=== PATIENT | female | born 1975 | race Caucasian/White ===

== ENCOUNTER → 2018-03-22 | Outpatient (CLI) | payer OTHER ==
[2018-03-22 11:46] LABS: ALT 28 U/L (9-52); AST 23 U/L (14-36); Albumin 4.4 g/dL (3.5-5.0); Alkaline Phosphatase 59 U/L (38-126); Anion Gap 7 mmol/L; Blood Urea Nitrogen 14 mg/dL (7-17); Calcium 9.5 mg/dL (8.4-10.2); Carbon Dioxide 29 mmol/L (22-30); Chloride 105 mmol/L (98-107); Glucose 87 mg/dL (74-99); Potassium 4.4 mmol/L (3.5-5.1); Sodium 141 mmol/L (137-145); Total Bilirubin 0.6 mg/dL (0.2-1.3); Total Protein 7.7 g/dL (6.3-8.2)
--- NOTE | 2018-03-23 10:14 | XR ---
EXAMINATION TYPE: XR chest 2V DATE OF EXAM: 03/22/2018 COMPARISON: 02/29/2016 TECHNIQUE: PA and lateral views submitted. HISTORY: History of right renal cancer FINDINGS: The lungs are clear and there is no pneumothorax, pleural effusion, or focal pneumonia. IMPRESSION: 1. No acute process.
== END | disposition home or self-care (01) ==
LOC: LABWHC1 11:00
PROVIDERS: ATTEND Urology
DX: C64.1 Malignant neoplasm of right kidney, except renal pelvis (principal)
CPT/HCPCS: 36415; 71046; 80053

== ENCOUNTER → 2019-03-17 | Outpatient (CLI) | payer OTHER ==
--- NOTE | 2019-03-17 10:15 | XR ---
EXAMINATION TYPE: XR chest 2V DATE OF EXAM: 03/17/2019 COMPARISON: Chest x-ray March 22, 2018. HISTORY: Renal cancer. TECHNIQUE: Frontal and lateral views of the chest are obtained. FINDINGS: There is no focal air space opacity, pleural effusion, or pneumothorax seen. The cardiac silhouette size is within normal limits. The osseous structures are intact. Cholecystectomy clips a re redemonstrated on lateral view. IMPRESSION: No acute cardiopulmonary process. No significant change from prior.
[2019-03-17 17:36] LABS: African American GFR (CKD) 128.5 (60.0-200.0); Albumin 4.4 g/dL (3.80-4.90); Anion Gap 9.7 mmol/L (4.00-12.00); BUN/Creat Ratio 26.67 Ratio (12.00-20.00); Carbon Dioxide 22.3 mmol/L (21.6-31.8); Globulin 2.2 g/dL (1.6-3.3); Potassium 4.2 mmol/L (3.5-5.5); Total Bilirubin 0.4 mg/dL (0.2-1.2); Total Protein 6.6 g/dL (6.2-8.2)
== END | disposition home or self-care (01) ==
LOC: LABWHC1 08:45
PROVIDERS: ATTEND Urology
DX: C64.1 Malignant neoplasm of right kidney, except renal pelvis (principal)
CPT/HCPCS: 36415; 71046; 80053

== ENCOUNTER → 2020-05-10 | Outpatient (CLI) | payer OTHER ==
--- NOTE | 2020-05-10 10:44 | XR ---
EXAMINATION TYPE: XR chest 2V DATE OF EXAM: 05/10/2020 COMPARISON: NONE HISTORY: Chest pain TECHNIQUE: Frontal and lateral views of the chest are obtained. FINDINGS: There is no focal air space opacity. No evidence for pneumothorax. No pleural effusion. The cardiac silhouette size is within normal limits. The osseous structures are grossly intact. IMPRESSION: 1. No acute cardiopulmonary process.
[2020-05-10 15:29] LABS: African American GFR (CKD) 121.3 (60.0-200.0); Albumin 4.5 g/dL (3.80-4.90); Albumin/Globulin Ratio 1.73 (1.60-3.17); Anion Gap 8.3 mmol/L (4.00-12.00); Calcium 9.5 mg/dL (8.7-10.3); Carbon Dioxide 24.7 mmol/L (21.6-31.8); Globulin 2.6 g/dL (1.6-3.3); Non-African American GFR(CKD) 104.6 (60.0-200.0); Potassium 4.3 mmol/L (3.5-5.5); Total Bilirubin 0.5 mg/dL (0.3-1.2); Total Protein 7.1 g/dL (6.2-8.2)
== END | disposition home or self-care (01) ==
LOC: LABWHC1 09:30
PROVIDERS: ATTEND Urology
DX: C64.1 Malignant neoplasm of right kidney, except renal pelvis (principal)
CPT/HCPCS: 36415; 71046; 80053

== ENCOUNTER → 2021-05-08 | Outpatient (CLI) | payer OTHER ==
[2021-05-08 21:22] LABS: African American GFR (CKD) 124.6 (60.0-200.0); Albumin 4.1 g/dL (3.8-4.9); Albumin/Globulin Ratio 1.57 (1.60-3.17); Anion Gap 11.6 mmol/L (4.00-12.00); BUN/Creat Ratio 18.7 Ratio (12.00-20.00); Blood Urea Nitrogen 11.8 mg/dL (9.0-27.0); Carbon Dioxide 21.9 mmol/L (21.6-31.8); Globulin 2.6 g/dL (1.6-3.3); Non-African American GFR(CKD) 107.5 (60.0-200.0); Potassium 4.3 mmol/L (3.5-5.5); Total Bilirubin 0.4 mg/dL (0.30-1.20); Total Protein 6.7 g/dL (6.2-8.2)
== END | disposition home or self-care (01) ==
LOC: LABWHC1 08:35
PROVIDERS: ATTEND Urology
DX: C64.1 Malignant neoplasm of right kidney, except renal pelvis (principal)
CPT/HCPCS: 36415; 80053

== ENCOUNTER → 2021-05-08 | Outpatient (CLI) | payer OTHER ==
--- NOTE | 2021-05-08 09:09 | XR ---
EXAMINATION TYPE: XR chest 2V DATE OF EXAM: 05/08/2021 COMPARISON: NONE TECHNIQUE: PA and lateral views submitted. HISTORY: Renal cancer FINDINGS: The lungs are clear and there is no pneumothorax, pleural effusion, or focal pneumonia. Heart size normal. No overt failure. Hypertrophic and degenerative change of the spine. Surgical clips in the ab domen. IMPRESSION: 1. No acute process.
== END | disposition home or self-care (01) ==
LOC: RADXRMAIN 08:51
PROVIDERS: ATTEND Urology
DX: C64.9 Malignant neoplasm of unspecified kidney, except renal pelvis (principal)
CPT/HCPCS: 71046

== ENCOUNTER → 2023-02-08 | Outpatient (CLI) | payer OTHER ==
[2023-02-08 16:54] LABS: African American GFR (CKD) >90 (>60 ml/min/1.73 sqM); Blood Urea Nitrogen 15 mg/dL (7-17); Non-African American GFR(CKD) >90 (>60 ml/min/1.73 sqM)
--- NOTE | 2023-02-10 17:19 | CT ---
EXAMINATION TYPE: CT abdomen pelvis w con CT DLP: 2449.1 mGycm, Automated exposure control for dose reduction was used. DATE OF EXAM: 02/08/2023 6:15 PM COMPARISON: CT abdomen 03/03/2014. CLINICAL INDICATION:Female, 47 years old with history of R19.00, Z90.5 ACQUIRED ABSENCE OF KIDNEY; Bu lge on left quadrant of abdomen. Possible bowel herniation. TECHNIQUE: Standard CT of the abdomen and pelvis following the administration of 100 cc of Isovue 3 00 IV contrast material and oral contrast. Coronal and sagittal reformats were performed. FINDINGS: LOWER CHEST: Unremarkable ABDOMEN LIVER: Diffusely hypoattenuating parenchyma. GALLBLADDER AND BILE DUCTS: The gallbladder is surgically absent. PANCREAS: Unremarkable. SPLEEN: Development of a 2.2 cm cystic lesion along the inferior aspect. ADRENAL GLANDS: Unremarkable left adrenal gland. Stable subcentimeter nodularity involving the inferi or right adrenal gland 2013 and considered benign. KIDNEYS AND URETERS: Postsurgical changes from right nephrectomy. No suspicious soft tissue within th e nephrectomy bed. No hydronephrosis, nephrolithiasis, or abnormal mass involving the left kidney. PELVIS BLADDER: Unremarkable REPRODUCTIVE: Anteverted uterus. 1.4 cm cystic lesion within the region of the cervix. Right ovarian 3.5 cm cystic lesion. ABDOMEN & PELVIS STOMACH AND BOWEL: Small diverticulum involving the second/third portion of the duodenum. Enteric con trast reaches the mid small bowel. No focal bowel wall thickening or surrounding inflammatory changes . The appendix is within normal limits. No evidence of bowel obstruction. PERITONEUM: No evidence of pneumoperitoneum or free fluid. VASCULATURE: No evidence of aortic aneurysm. MUSCULOSKELETAL: No acute osseous abnormalities. Mild disc degeneration changes are present throughou t the thoracolumbar spine.. Sclerotic focus within the right iliac bone likely representing a benign bone windows. Lumbarization of the S1 vertebral body. LYMPH NODES: No gross evidence for lymphadenopathy. SOFT TISSUE/ABDOMINAL WALL: Large left periumbilical hernia containing nonobstructive small and large bowel including the cecum and appendix with mesentery. Defect measures 10.7 x 7.3 cm in TV and cc di mensions (series 3, image 65 and series 8, image 65). Additional ventral wall fat filled hernia just superior to the larger one with a defect measuring 1.7 x 1.2 cm in AP and CC dimensions respectively. IMPRESSION: 1. Large left periumbilical hernia containing nonobstructive small and large bowel with mesentery. A dditional smaller ventral wall hernia containing fat just above this. 2. Post surgical changes from right nephrectomy. No evidence for metastasis or local recurrence. 3. Likely benign indeterminate 2.2 cm cystic lesion within the spleen. 4. Hepatic steatosis. 5. Cystic 1.4 cm lesion within the cervix which probably represents a nabothian cyst with additional right ovarian 3.5 cm indeterminate cystic lesion. Probable follicular cyst. This can be further evalu ated with pelvic ultrasound as clinically indicated.
== END | disposition home or self-care (01) ==
LOC: RADCTMAIN 15:56
PROVIDERS: ATTEND Surgery
DX: K42.9 Umbilical hernia without obstruction or gangrene (principal); K76.0 Fatty (change of) liver, not elsewhere classified; K44.9 Diaphragmatic hernia without obstruction or gangrene; N88.8 Other specified noninflammatory disorders of cervix uteri; R19.00 Intra-abdominal and pelvic swelling, mass and lump, unspecified site; Z90.5 Acquired absence of kidney
CPT/HCPCS: 82565; 84520; 74177; 36415; Q9967

== ENCOUNTER → 2023-05-20 | Outpatient (CLI) | payer OTHER ==
[2023-05-20 15:35] LABS: Basophils # (A) 0.08 X 10*3/uL (0.00-0.10); Eosinophils # (A) 0.15 X 10*3/uL (0.04-0.35); Eosinophils % (A) 1.9 %; HCT 40.2 % (37.2-46.3); HGB 12.9 g/dL (12.0-15.0); Lymphocytes # (A) 2.26 X 10*3/uL (0.90-5.00); Lymphocytes % (A) 28.1 %; MCH 26.8 pg (27.0-32.0); MCHC 32.1 g/dL (32.0-37.0); MCV 83.6 FL (80.0-97.0); Monocytes # (A) 0.67 X 10*3/uL (0.20-1.00); Monocytes % (A) 8.3 %; NRBC Per 100 WBC 0 X 10*3/uL (0.00-0.01); Neutrophils # (A) 4.85 X 10*3/uL (1.80-7.70); Neutrophils % (A) 60.3 %; Platelet Count 340 X 10*3/uL (140-440); RBC 4.81 X 10*6/uL (4.10-5.20); RDW 13.4 % (11.5-14.5); WBC 8.04 X 10*3/uL (4.50-10.00)
== END | disposition home or self-care (01) ==
LOC: LABPAT 08:55
PROVIDERS: ATTEND Obstetrics & Gynecology
DX: Z01.812 Encounter for preprocedural laboratory examination (principal); N84.0 Polyp of corpus uteri
CPT/HCPCS: 85025

== ENCOUNTER 2023-05-27 08:37 | Day surgery (SDC) | payer OTHER ==
[2023-05-20 10:36] VITALS: BMI 38.2
--- NOTE | 2023-05-21 17:20 | P.HPIHPCON ---
History of Present Illness H&P Date: 05/21/23 Chief Complaint: Endometrial hyperplasia Ms. Zhao is a 47 year old with abnormal uterine bleeding who was found on endometrial biopsy to have fragments of endometrial polyp and endometrial hyperplasia without atypia. Consent for Procedure: I have explained the operation/procedure to the patient, including the risks, benefits, side effects, alternative therapies (including not receiving the proposed treatment or service), the likelihood of the patient achieving his/her goals, and potential recuperation problems for the procedure/sedation/analgesia, as well as any blood products, if indicated. I also explained to the patient the risks, benefits and side effects of the alternatives, as well as the risks related to not receiving the proposed procedure, care, treatment, or services. Past Medical History Past Medical History: Hearing Disorder / Deafness Additional Past Medical History / Comment(s): SEASONAL ALLERGIES History of Any Multi-Drug Resistant Organisms: None Reported Additional Past Surgical History / Comment(s): right kidney removed 2008 Past Anesthesia/Blood Transfusion Reactions: No Reported Reaction Past Psychological History: No Psychological Hx Reported Smoking Status: Never smoker Past Alcohol Use History: None Reported Past Drug Use History: None Reported - Past Family History Mother Family Medical History: No Reported History Additional Family Medical History / Comment(s): PT STATES THERE IS A POSSIBLE FAMILY HX OF DVT IN HER FAMILY MEMBERS Medications and Allergies Home Medications Medication Instructions Recorded Confirmed Type Fluticasone Nasal [place] [Flonase 1 spray EA NOSTRIL DAILY 05/20/23 05/20/23 H istory Nasal [place]] Loratadine 10 mg PO DAILY 05/20/23 05/20/23 History Montelukast [Singulair] 10 mg PO DAILY 05/20/23 05/20/23 History Progesterone, Micronized 200 mg PO HS 05/20/23 05/20/23 History [Progesterone] Allergies Allergy/AdvReac Type Severity Reaction Status Date / Time No Known Allergies Allergy Verified 05/20/23 10:22 Surgical - Exam Focused physical exam is performed. The patient is in no distress. Breathing is non-labored. Abdomen is soft, non-tender. Extremities are non-tender and non- edematous. Assessment and Plan Assessment: 47 year old with endometrial polyps and endometrial hyperplasia without atypia Plan: Risks, benefits, and alternatives to Hysteroscopy D&C with Polypectomy were discussed with the patient including risk of bleeding, infection, uterine perforation and damage to surrounding structures. The patient understands these risks and desires to proceed with surgery as scheduled. Time with Patient: Less than 30
[~2023-05-27 08:37] MED LIST: DEXAMETHASONE SOD PHOSPHATE 4 MG/ML 1 ML VIAL IV ONE; HYDROmorphone 0.5 MG/0.5 ML SYRINGE IVP PRN; LACTATED RINGERS 1,000 ML IV SCH; LIDOCAINE 1% (10MG/ML) FOR IV START INTRADERMA PRN; ONDANSETRON 4 MG/2 ML VIAL IVP ONE; Pre Op ABX Message 1 EACH MISC MISCELLANE ONE; droPERidol 5 MG/2 ML VIAL IVP PRN
[2023-05-27 09:27] VITALS: RESP 16
[2023-05-27] MEDS ORDERED: PROPOFOL 10 MG/ML 20 ML VIAL IV ONE (10:44)
[2023-05-27] MEDS ORDERED: KETOROLAC 15 MG/ML 1 ML VIAL ONE (10:44)
[2023-05-27] MEDS ORDERED: LIDOCAINE 1% INJ 10MG/ML (20 ML MDV) ONE (10:44)
[2023-05-27] MEDS ORDERED: SUCCINYLCHOLINE CHLORIDE 200 MG/10 ML VIAL IV ONE (10:44)
[2023-05-27] MEDS ORDERED: fentaNYL (PF) 50 MCG/ML 2 ML AMP ONE (10:44)
[2023-05-27] MEDS ORDERED: MIDAZOLAM 2 MG/2 ML VIAL ONE (10:44)
--- NOTE | 2023-05-27 11:27 | P.OP ---
Date of Procedure: 05/27/23 Preoperative Diagnosis: 1. Abnormal Uterine Bleeding 2. Endometrial Hyperplasia without Atypia 3. Endometrial Polyps Postoperative Diagnosis: Same Procedure(s) Performed: Hysteroscopy Dilation and Curettage with Polypectomy Implants: None Anesthesia: KARINA Surgeon: Samantha Thomas Estimated Blood Loss (ml): 1 IV fluids (ml): 300 Urine output (ml): 400 Pathology: other (endometrial curettings) Condition: stable Disposition: same day Indications for Procedure: 47 year old with endometrial polyps and endometrial hyperplasia without atypia. Risks, benefits, and alternatives to Hysteroscopy D&C with Polypectomy were discussed with the patient including risk of bleeding, infection, uterine perforation and damage to surrounding structures. The patient understands these risks and desires to proceed with surgery as scheduled. Operative Findings: Anteverted, slightly enlarged uterus sounding to 11cm. Shaggy, proliferative appearing endometrium. Description of Procedure: Patient is brought to the operating suite and placed in the dorsal lithotomy position. The cervix perineum and lower abdomen are prepped and draped in the usual sterile fashion. Examination under anesthesia reveals a slightly enlarged, anteverted uterus. Adnexa are negative bilaterally. The bladder is drained for approximately 400 mL of clear yellow urine. The anterior lip of the cervix is grasped with a double toothed tenaculum after the weighted speculum is placed into the vagina. The uterus sounds to a depth of 11 cm in the anteverted position. The Hanks dilators are placed and the cervix was dilated to 18 mm. The hysteroscope was then introduced and with saline infusion the cavity is distended. Polyps are noted along with shaggy proliferative type endometrium. The MyoSure Device is inserted through the hysteroscopy and used to shave the endometrium and polyps away. The uterus is satisfactorily evacuated after the procedure. All sponge needle and instrument counts are correct. Instrumentation is removed from the vagina and the patient is brought to the recovery room in stable condition. Toradol is given prior to leaving the operative suite. Patient will follow up with me in the office in 2 weeks. Verbal and written instructions are provided.
[2023-05-27 11:58] VITALS: TEMP 97.7
[2023-05-27 12:58] VITALS: BP 130/77; PULSE 83
== END 2023-05-27 12:58 | disposition home or self-care (01) ==
LOC: OR 08:37
PROVIDERS: ATTEND Obstetrics & Gynecology
DX: N93.9 Abnormal uterine and vaginal bleeding, unspecified (principal); N85.00 Endometrial hyperplasia, unspecified; Z98.890 Other specified postprocedural states; Z79.899 Other long term (current) drug therapy
CPT/HCPCS: 58558; 81025; 88305; J2250; J0330; J1100; J2405; J2001; J3010; J1885; J2704

== ENCOUNTER → 2024-05-27 | Outpatient (CLI) | payer OTHER ==
--- NOTE | 2024-05-27 19:03 | CT ---
EXAMINATION TYPE: CT abdomen pelvis w con DATE OF EXAM: 05/27/2024 6:18 PM COMPARISON: 02/08/2023 CLINICAL INDICATION: Female, 48 years old with history of K43.9 VENTRAL HERNIA; abdominal hernia > 1 year TECHNIQUE: Axial CT abdomen pelvis w con;Sagittal and coronal reformats were created on a separate w orkstation. Contrast used:100 mL of Isovue 300 with IV Contrast, (none if empty) Oral contrast used: with Oral Contrast (none if empty) CT DLP: 1937.5 mGycm, Automated exposure control for dose reduction was used. FINDINGS: LOWER CHEST: Unremarkable ABDOMEN LIVER: Diffusely hypoattenuating parenchyma. GALLBLADDER AND BILE DUCTS: The gallbladder is surgically absent. PANCREAS: Unremarkable. SPLEEN: Inferior probable cyst. ADRENAL GLANDS: Unremarkable. KIDNEYS AND URETERS: No evidence of hydronephrosis or renal calculus. The ureters are unremarkable. PELVIS BLADDER: No evidence for wall thickening or mass given limitations of exam. REPRODUCTIVE: Unremarkable. ABDOMEN & PELVIS STOMACH AND BOWEL: No evidence of bowel obstruction. No evidence for obstruction or stimulation. Larg e ventral hernia containing loops of small and large bowel. The appendix is in this loop of hernia. PERITONEUM/RETROPERITONEUM: No evidence of pneumoperitoneum or free fluid. VASCULATURE: No evidence of aortic aneurysm. MUSCULOSKELETAL: No acute osseous abnormalities LYMPH NODES: No gross evidence for lymphadenopathy. SOFT TISSUE/ABDOMINAL WALL: Large ventral wall hernia containing loops of small and large bowel. Neck measuring up to 9.1 cm. Additional smaller fat-containing hernia is more superior to this. IMPRESSION: 1. Large abdominal ventral wall hernia containing loops of large and small bowel, no evidence for ob struction or circulation. Additional smaller more superior ventral wall hernias containing fat. 2. Hepatic steatosis. 3. Simple appearing splenic cyst. 4. Colonic diverticulosis. [facility], , 05/27/2024 7:01 PM
== END | disposition home or self-care (01) ==
LOC: RADCTMAIN 16:15
PROVIDERS: ATTEND Surgery
DX: K43.9 Ventral hernia without obstruction or gangrene (principal); K76.0 Fatty (change of) liver, not elsewhere classified; D73.4 Cyst of spleen; K57.30 Diverticulosis of large intestine without perforation or abscess without bleeding
CPT/HCPCS: 74177; Q9967